=== PATIENT | female | born 1950 | race Caucasian/White ===

== ENCOUNTER 2017-04-07 12:39 | Emergency (ER) | payer MEDICARE, OTHER ==
[~2017-04-07] VITALS: Ht 165.1 cm; Wt 140.6 kg
[2017-04-07 12:51] VITALS: BP 152/70
[2017-04-07] MEDS ORDERED: HYDROcodone/APAP 5/325MG 1 TAB TABLET PO ONE (13:00)
--- NOTE | 2017-04-07 13:02 | PHYS DOC ---
Past Medical History Past Medical History: No Pertinent History Past Surgical History: Knee Replacement Additional Past Surgical Histo: L meniscus Alcohol Use: None Drug Use: None Adult General Chief Complaint Chief Complaint: LOWER EXT PAIN HPI HPI Patient is a 66 year old female who presents today with moderate left knee pain that began Mar 28 2017. Patient denies any trauma. Patient states she has an appointment with Dr. Blanco her orthopedic doctor on 17 Apr 2017. She states she couldn't wait until then. Review of Systems Review of Systems Constitutional: Denies fever or chills [] Eyes: Denies change in visual acuity, redness, or eye pain [] : Denies dysuria or hematuria [] Musculoskeletal: Left knee pain Integument: Denies rash or skin lesions [] Neurologic: Denies headache, focal weakness or sensory changes [] Endocrine: Denies polyuria or polydipsia [] Current Medications Current Medications Current Medications Medications (Trade) Dose Ordered Sig/[place] Start Time Stop Time Status Last Admin Dose Admin Acetaminophen/ Hydrocodone Bitart (Lortab 5/325) 2 tab 1X ONCE 04/07/17 13:00 04/07/17 13:01 DC 04/07/17 13:11 2 TAB Allergies Allergies Allergies Coded Allergies Type Severity Reaction Last Updated Verified No Known Drug Allergies 04/07/17 No Physical Exam Physical Exam Constitutional: Well developed, well nourished, no acute distress, non-toxic appearance. [] HENT: Normocephalic, atraumatic, bilateral external ears normal, oropharynx moist, no oral exudates, nose normal. [] Skin: Warm, dry, no erythema, no rash. [] Back: No tenderness, no CVA tenderness. [] Extremities: Morbidly obese patient, no obvious deformity to the left lower extremity. Tenderness diffusely on palpation of the left anterior knee. Limited flexion of the left knee due to weight and pain. Most of the exam is difficult because of the weight. +2 left pedal pulse. Cap refill less than 2 seconds the left lower extremity. Neurologic: Alert and oriented X 3, normal motor function, normal sensory function, no focal deficits noted. [] Psychologic: Affect normal, judgement normal, mood normal. [] Current Patient Data Vital Signs Vital Signs Date Time Temp Pulse Resp B/P (MAP) Pulse Ox O2 Delivery O2 Flow Rate FiO2 04/07/17 13:11 19 95 Room Air 04/07/17 12:51 97.6 100 97.6 EKG EKG [] Radiology/Procedures Radiology/Procedures []PROCEDURE: KNEE LEFT 4V Indication chronic pain. AP and lateral oblique and sunrise views of the left knee were obtained. Bony mineralization appears normal. There is mild patellofemoral narrowing. No acute finding is seen. Vascular calcification is noted. IMPRESSION: Mild degenerative change DICTATED and SIGNED BY: MANISHA JIMENEZ MD DATE: 04/07/17 [id number] CC: EMILIE NGUYEN MD; ARY GILLETTE APRN ~ Course & Med Decision Making Course & Med Decision Making Pertinent Labs and Imaging studies reviewed. (See chart for details) This is an overweight patient in the ED with complaints of left knee pain, no known injury. Left knee x-rays interpreted by radiologist are negative for any acute findings but noted for arthritis. Patient has an appointment with her own orthopedic doctor, we recommended she follows up next week. Dragon Disclaimer Dragon Disclaimer This electronic medical record was generated, in whole or in part, using a voice recognition dictation system. Departure Departure Impression: Primary Impression: Left knee pain Additional Impression: Left knee DJD Disposition: HOME, SELF-CARE Condition: STABLE Referrals: CHIARA HOGUE MD (PCP) CHRISTOFER BLANCO MD Follow-up with your own doctor as soon as you can Patient Instructions: Arthritis, Degenerative-Brief, Knee Pain, [id number] Additional Instructions: You were seen for left knee pain. Your left knee x-rays are negative for any acute findings, you do have arthritis on the left knee showing up on x-ray. Follow-up with the orthopedic doctor next week or anytime you can get in. Take the prescribed pain medicines as needed. Come back to the ED symptoms worsen. Scripts Hydrocodone/Apap 5-325 (NORCO 5-325 TABLET) 1 Each Tablet 1-2 TAB PO Q4-6HRS, #20 TAB Prov: ARY GILLETTE APRN 04/07/17 Problem Qualifiers Primary Impression: Left knee pain Chronicity: acute Qualified Codes: M25.562 - Pain in left knee Additional Impression: Left knee DJD Osteoarthritis type: unspecified Qualified Codes: M17.12 - Unilateral primary osteoarthritis, left knee ARY GILLETTE APRN April 07, 2017 13:02
--- NOTE | 2017-04-07 13:38 | RAD ---
Indication chronic pain. AP and lateral oblique and sunrise views of the left knee were obtained. Bony mineralization appears normal. There is mild patellofemoral narrowing. No acute finding is seen. Vascular calcification is noted. IMPRESSION: Mild degenerative change
[2017-04-07] MEDS ORDERED: HYDR-971 PO (13:59)
== END 2017-04-07 14:05 | disposition home or self-care (01) ==
LOC: ER 13:05
DX: M17.12 Unilateral primary osteoarthritis, left knee (principal); Z96.659 Presence of unspecified artificial knee joint
CPT/HCPCS: 73564; 99284

== ENCOUNTER → 2017-10-27 | Outpatient (CLI) | payer MEDICARE, OTHER ==
[~2017-10-27] MED LIST: HYDR-971 PO
--- NOTE | 2017-10-27 17:11 | RAD ---
Left lower extremity venous ultrasound, 10/27/2017 History: Left calf swelling, cellulitis Duplex evaluation including grayscale, color flow and spectral Doppler analysis was performed. The femoral and popliteal veins show no filling defects to suggest DVT. The visualized calf veins are unremarkable. IMPRESSION: There is no sonographic evidence of deep vein thrombosis in the left lower extremity
== END | disposition home or self-care (01) ==
LOC: US 11:55
PROVIDERS: ATTEND Family Medicine
DX: L03.115 Cellulitis of right lower limb (principal); R60.0 Localized edema
CPT/HCPCS: 93971

== ENCOUNTER → 2017-12-22 | Outpatient (CLI) | payer MEDICARE, OTHER | END | disposition home or self-care (01) | LOC: ECHO 07:33 | DX: I49.9 Cardiac arrhythmia, unspecified (principal); I87.2 Venous insufficiency (chronic) (peripheral); K21.9 Gastro-esophageal reflux disease without esophagitis; R00.2 Palpitations | CPT/HCPCS: 93225; 93306; 93970 ==

== ENCOUNTER → 2018-11-06 | Outpatient (CLI) | payer MEDICARE, OTHER ==
[~2018-11-06] MED LIST changes: +HYDR-3164 PO; -HYDR-971 PO
--- NOTE | 2018-11-07 10:53 | RAD ---
Ankle brachial index study: Clinical indications: Claudication. Large body habitus.. Ankle/brachial indices were performed on both sides. Right side: Arm: The systolic blood pressure is 117 mmHg Ankle: The systolic blood pressure is 103 mmHg Therefore, the ankle brachial index on the right side is 0.88. Left side: Arm: The systolic blood pressure is 99 mmHg Ankle: The systolic blood pressure is 122 mmHg Therefore, the ankle brachial index on the left side is 1.04 using the higher right arm systolic pressure. Impression: Mild decrease in BARRY on the right side. Normal study on the left side.. Electronically signed by: Maxx Newell MD (11/07/2018 10:49 AM) [facility]
== END | disposition home or self-care (01) ==
LOC: US 14:19
PROVIDERS: ATTEND Family Medicine
DX: I73.9 Peripheral vascular disease, unspecified (principal); R09.89 Other specified symptoms and signs involving the circulatory and respiratory systems
CPT/HCPCS: 93922

== ENCOUNTER → 2019-07-31 | Outpatient (CLI) | payer MEDICARE, OTHER ==
--- NOTE | 2019-08-01 13:07 | CARD ---
MR#: [id number] Date of Study: 07/31/2019 Ordering Physician: PADDY BUTTS, Referring Physician: PADDY BUTTS, Tech: Nona Mcbride APPROVED REPORT EXAM: Two-dimensional and M-mode echocardiogram with Doppler and color Doppler. Other Information Quality : AverageHR: 76bpm Technically limited study due to body habitus. INDICATION Hypertension/HCVD RISK FACTORS Diabetes 2D DIMENSIONS RVDd2.8 (2.9-3.5cm)Left Atrium(2D)3.4 (1.6-4.0cm) IVSd1.0 (0.7-1.1cm)Aortic Root(2D)3.2 (2.0-3.7cm) LVDd5.4 (3.9-5.9cm)LVOT Diameter2.2 (1.8-2.4cm) PWd1.0 (0.7-1.1cm)LVDs3.8 (2.5-4.0cm) FS (%) 29.6 %SV79.3 ml LVEF(%)56.1 (>50%) Aortic Valve AoV Peak Rich.192.3cm/sAoV VTI43.8cm AO Peak GR.14.8mmHgLVOT Peak Rich.115.8cm/s LVOT VTI 32.36cmAO Mean GR.8mmHg RENEA (VMAX)1.99mb7GQI (VTI)2.93cm2 AI P 1/2 [id number] Mitral Valve MV E Gdyoybfq831.0cm/sMV DECEL [id number] MV A Kbmguaxz760.8cm/sMV BUV64jb E/A Ratio1.1MVA (PHT)4.04cm2 TDI E/Lateral E'17.5E/Medial E'18.9 Pulmonary Valve PV Peak Wivshnat183.8cm/sPV Peak Grad.5mmHg Tricuspid Valve TR P. Slfketgk391cs/sRAP NAIJIMAF5qcEh TR Peak Gr.53sbCuEYKX42kdZk Pulmonary Vein S1 Ipglvopa50.2cm/sD2 Zabcjabl60.8cm/s PVa vjqbwxzy131iwpp LEFT VENTRICLE The Left Ventricle is mildly dilated. There is borderline concentric left ventricular hypertrophy. Th e left ventricular systolic function is normal. The Ejection Fraction is 50-55%. There is normal LV s egmental wall motion. RIGHT VENTRICLE The right ventricle is borderline dilated. There is normal right ventricular wall thickness. The righ t ventricular systolic function is normal. ATRIA The left atrium is borderline dilated. The right atrium size is normal. The interatrial septum is int act with no evidence for an atrial septal defect or patent foramen ovale as noted on 2-D or Doppler i maging. AORTIC VALVE The aortic valve is normal in structure and function. Doppler and Color Flow revealed trace aortic re gurgitation. There is no significant aortic valvular stenosis. MITRAL VALVE The mitral valve is normal in structure and function. There is no evidence of mitral valve prolapse. There is no mitral valve stenosis. Doppler and Color-flow revealed trace mitral regurgitation. TRICUSPID VALVE The tricuspid valve is not well visualized. Doppler and Color Flow revealed trace tricuspid regurgita tion with an estimated PAP of 53 mmHg. There is moderate pulmonary hypertension. There is no tricuspi d valve stenosis. PULMONIC VALVE The pulmonic valve is not well visualized. Doppler and Color Flow revealed trace pulmonic valvular re gurgitation. GREAT VESSELS The aortic root is normal in size. The IVC is normal in size and collapses >50% with inspiration. PERICARDIAL EFFUSION There is no evidence of significant pericardial effusion. Critical Notification Critical Value: No <Conclusion> The left ventricular systolic function is normal. The Ejection Fraction is 50-55%. There is normal LV segmental wall motion. Trace mitral regurgitation. Trace tricuspid regurgitation with an estimated PAP of 53 mmHg. There is moderate pulmonary hypertension. There is no evidence of significant pericardial effusion. Signed by : Paddy Butts, Electronically Approved : 07/31/2019 13:35:13
== END | disposition home or self-care (01) ==
LOC: ECHO 09:50
PROVIDERS: ATTEND Internal Medicine Cardiovascular Disease
DX: I11.9 Hypertensive heart disease without heart failure (principal); I27.20 Pulmonary hypertension, unspecified
CPT/HCPCS: 93306

== ENCOUNTER → 2020-02-19 | Outpatient (CLI) | payer MEDICARE ==
[~2020-02-19] MED LIST changes: +GADOTERATE 7.5 MMOL/15ML VIAL. IVP ONE
--- NOTE | 2020-02-19 11:32 | RAD ---
MR of the left foot HISTORY: Left first metatarsal plantar foot wound for 4 months. TECHNIQUE: Routine multiplanar sequences are obtained. FINDINGS: Suboptimal fat suppression on the examination. However, there is diagnostic information. Soft tissue induration/signal at the plantar medial foot, plantar and medial to the first MTP joint. No evidence of organized fluid collection or drainable abscess. Marrow edema within the medial hallux sesamoid, with cortical ill-definition and loss of T1 signal, as well as some enhancement, very suspicious for osteomyelitis given the proximity of the ulcer. Milder marrow change at the lateral hallux sesamoid is less specific, could be degenerative or reactive, versus osteomyelitis. Note there are degenerative type changes at the articulation of the first metatarsal with the hallux sesamoids. No definite osteomyelitis is suspected elsewhere, although detection of bone pathology could be limited due to the suboptimal fat suppression. No definite acute fracture. No large joint effusion. Mild fluid within the flexor hallucis longus tendon sheath at the level of the toe. Lisfranc ligament complex is intact as is tarsometatarsal alignment. Degenerative changes at the tarsometatarsal joint. IMPRESSION: 1. Findings are very suspicious for osteomyelitis at the medial hallux sesamoid, particularly given the proximity of an ulcer. More nonspecific marrow changes at the lateral hallux sesamoid, could also be due to osteomyelitis versus reactive change. 2. Mild nonspecific tendon sheath fluid at the flexor hallucis longus tendon at the toe. This could be reactive or infectious tenosynovitis. Electronically signed by: South Noonan MD (02/19/2020 11:29 AM) [id number]
== END | disposition home or self-care (01) ==
LOC: MRI 09:09
PROVIDERS: ATTEND Preventive Medicine Undersea and Hyperbaric Medicine
DX: S91.302A Unspecified open wound, left foot, initial encounter (principal); X58.XXXA Exposure to other specified factors, initial encounter; Y93.89 Activity, other specified; Y92.89 Other specified places as the place of occurrence of the external cause; Y99.8 Other external cause status
CPT/HCPCS: 73720; A9575

== ENCOUNTER → 2020-02-21 | Outpatient (CLI) | payer MEDICARE ==
[~2020-02-21] MED LIST changes: -GADOTERATE 7.5 MMOL/15ML VIAL. IVP ONE
--- NOTE | 2020-02-21 14:46 | RAD ---
Left lower extremity arterial Doppler ultrasound HISTORY: Left foot wound. TECHNIQUE: Color Doppler, grayscale and duplex analysis performed of the lower extremity arterial structures, from the common femoral artery through the runoff vessels. COMPARISON: None are available Findings: All velocity measurements are in centimeters per second. A mixture of waveforms are identified throughout. Triphasic waveforms are seen at the proximal and mid superficial femoral artery. Monophasic waveforms the distal superficial femoral artery, posterior tibial artery, anterior tibial artery and dorsalis pedis artery. Biphasic waveforms at common femoral artery and popliteal artery. The peroneal artery cannot be visualized. No segmental significant velocity elevation is identified. No evidence of occlusion. Left BARRY is 1.12. IMPRESSION: 1. Evidence of atherosclerotic disease with monophasic waveforms. No evidence of occlusion or critical stenosis. 2. Left BARRY within normal limits. Electronically signed by: South Noonan MD (02/21/2020 2:43 PM) [id number]
== END ==
LOC: US 13:19
PROVIDERS: ATTEND Preventive Medicine Undersea and Hyperbaric Medicine
DX: S91.302A Unspecified open wound, left foot, initial encounter (principal); I70.203 Unspecified atherosclerosis of native arteries of extremities, bilateral legs; X58.XXXA Exposure to other specified factors, initial encounter; Y93.89 Activity, other specified; Y92.89 Other specified places as the place of occurrence of the external cause; Y99.8 Other external cause status
CPT/HCPCS: 93922; 93926

== ENCOUNTER → 2020-11-16 | Outpatient (CLI) | payer MEDICARE ==
--- NOTE | 2020-11-16 14:25 | CARD ---
MR#: [id number] Date of Study: 11/16/2020 Ordering Physician: PADDY ALVARENGA, Referring Physician: PADDY ALVARENGA Tech: [place] CHELSEY APPROVED REPORT EXAM: Two-dimensional and M-mode echocardiogram with Doppler and color Doppler. Other Information Quality : Technically LimitedHR: 97bpm Rhythm : Atrial Fibrillation INDICATION Hypertension/HCVD RISK FACTORS Hypertension Obesity Diabetes 2D DIMENSIONS RVDd3.2 (2.9-3.5cm)Left Atrium(2D)3.3 (1.6-4.0cm) IVSd0.9 (0.7-1.1cm)Aortic Root(2D)3.2 (2.0-3.7cm) LVDd4.6 (3.9-5.9cm)LVOT Diameter2.3 (1.8-2.4cm) PWd0.9 (0.7-1.1cm)LVDs3.3 (2.5-4.0cm) FS (%) 29.3 %SV55.6 ml LVEF(%)56.2 (>50%) Aortic Valve AoV Peak Rich.190.7cm/sAoV VTI45.1cm AO Peak GR.14.5mmHgLVOT Peak Rich.130.6cm/s AO Mean GR.8mmHgAVA (VMAX)2.84cm2 Pulmonary Valve PV Peak Ueandtxh72.9cm/s Tricuspid Valve TR P. Nkgdiged226lt/sTR Peak Gr.36mmHg LEFT VENTRICLE The left ventricle is normal size. There is normal left ventricular wall thickness. The left ventricu lar systolic function is lower limits of normal with estimated ejection fraction of 50-55% There is n ormal LV segmental wall motion. Tissue Doppler imaging reveals mild left ventricular diastolic dysfun ction. RIGHT VENTRICLE The right ventricle is borderline dilated. There is normal right ventricular wall thickness. The righ t ventricular systolic function is normal. ATRIA The left atrium size is normal. The right atrium size is normal. The interatrial septum is intact wit h no evidence for an atrial septal defect or patent foramen ovale as noted on 2-D or Doppler imaging. AORTIC VALVE The aortic valve is normal in structure and function. Doppler and Color Flow revealed no significant aortic regurgitation. There is no significant aortic valvular stenosis. MITRAL VALVE The mitral valve is normal in structure and function. There is no evidence of mitral valve prolapse. There is no mitral valve stenosis. Doppler and Color-flow revealed mild mitral regurgitation. TRICUSPID VALVE The tricuspid valve is normal in structure and function. Doppler and Color Flow revealed mild tricusp id regurgitation. Estimated PAP 35 mmHg. There is no tricuspid valve prolapse or vegetation. There i s no tricuspid valve stenosis. PULMONIC VALVE Doppler and Color Flow revealed no pulmonic valvular regurgitation. There is no pulmonic valvular abigail nosis. GREAT VESSELS The aortic root is normal in size. The ascending aorta is normal in size. The IVC is normal in size a nd collapses >50% with inspiration. PERICARDIAL EFFUSION There is no evidence of significant pericardial effusion. Critical Notification Critical Value: No <Conclusion> The left ventricular systolic function is lower limits of normal with estimated ejection fraction of 50-55% There is normal LV segmental wall motion. Doppler and Color Flow revealed mild tricuspid regurgitation. Estimated PAP 35 mmHg. Technically difficult study. Signed by : Michael Andrews, Electronically Approved : 11/16/2020 14:24:54
== END ==
LOC: ECHO 07:46
PROVIDERS: ATTEND Internal Medicine Cardiovascular Disease
DX: I08.1 Rheumatic disorders of both mitral and tricuspid valves (principal); I10 Essential (primary) hypertension
CPT/HCPCS: 93306

== ENCOUNTER → 2021-11-17 | Outpatient (CLI) | payer MEDICARE ==
[~2021-11-17] MED LIST changes: +PERFLUTREN PROTEIN-A MICROSPHR 0.22 MG/ML 3 ML VIAL. IV ONE
--- NOTE | 2021-11-17 18:12 | CARD ---
MR#: [id number] Date of Study: 11/17/2021 Ordering Physician: PADDY ALVARENGA, Referring Physician: PADDY ALVARENGA Tech: [place] [facility] APPROVED REPORT EXAM: Two-dimensional and M-mode echocardiogram with Doppler and color Doppler. Other Information Quality : Technically LimitedHR: 84bpm Rhythm : NSR INDICATION Dyspnea RISK FACTORS Hypertension Obesity Diabetes 2D DIMENSIONS RVDd3.2 (2.9-3.5cm)Left Atrium(2D)3.7 (1.6-4.0cm) IVSd0.9 (0.7-1.1cm)Aortic Root(2D)3.0 (2.0-3.7cm) LVDd4.7 (3.9-5.9cm)LVOT Diameter2.3 (1.8-2.4cm) PWd0.9 (0.7-1.1cm)LVDs3.4 (2.5-4.0cm) FS (%) 27.4 %SV54.8 ml Aortic Valve AoV Peak Rich.205.8cm/sAoV VTI44.8cm AO Peak GR.16.9mmHgLVOT Peak Rich.137.7cm/s AO Mean GR.9mmHgAVA (VMAX)2.68cm2 Mitral Valve MV E Kgxxauir839.8cm/sMV DECEL [id number] MV A Gdbulnlw358.8cm/sE/A Ratio1.0 Tricuspid Valve TR P. Jldwpiwy673te/sTR Peak Gr.29mmHg LEFT VENTRICLE The left ventricle is normal size. There is borderline concentric left ventricular hypertrophy. The l eft ventricular systolic function is normal and the ejection fraction is within normal range. LV ejec tion fraction of 50 to 55%. There is normal LV segmental wall motion. The left ventricular diastolic function and filling is normal for age. RIGHT VENTRICLE The right ventricle is normal size. There is normal right ventricular wall thickness. The right ventr icular systolic function is normal. ATRIA The left atrium size is normal. The right atrium size is normal. The interatrial septum is intact wit h no evidence for an atrial septal defect or patent foramen ovale as noted on 2-D or Doppler imaging. AORTIC VALVE The aortic valve is normal in structure and function. Doppler and Color Flow revealed no significant aortic regurgitation. There is no significant aortic valvular stenosis. MITRAL VALVE The mitral valve is normal in structure and function. There is no evidence of mitral valve prolapse. There is no mitral valve stenosis. Doppler and Color-flow revealed trace mitral regurgitation. TRICUSPID VALVE The tricuspid valve is normal in structure and function. Doppler and Color Flow revealed trace tricus pid regurgitation. Estimated PAP 31 mmHg. There is no tricuspid valve stenosis. GREAT VESSELS The aortic root is normal in size. The ascending aorta is normal in size. The IVC is normal in size a nd collapses >50% with inspiration. PERICARDIAL EFFUSION There is no evidence of significant pericardial effusion. Critical Notification Critical Value: No <Conclusion> The left ventricle is normal size. The left ventricular systolic function is normal and the ejection fraction is within normal range. LV ejection fraction of 50 to 55%. There is borderline concentric left ventricular hypertrophy. Doppler and Color Flow revealed no significant aortic regurgitation. There is no significant aortic valvular stenosis. Doppler and Color-flow revealed trace mitral regurgitation. Doppler and Color Flow revealed trace tricuspid regurgitation. Estimated PAP 31 mmHg. Signed by : Jorge Shepherd MD Electronically Approved : 11/17/2021 18:11:22
== END ==
LOC: ECHO 07:28
PROVIDERS: ATTEND Internal Medicine Cardiovascular Disease
DX: I10 Essential (primary) hypertension (principal); R06.00 Dyspnea, unspecified
CPT/HCPCS: 93306